=== PATIENT | male | born 1985 | race African-American/Black ===

== ENCOUNTER 2018-02-05 09:15 | Emergency (ER) | payer SELFPAY ==
[~2018-02-05] VITALS: Ht 175.3 cm; Wt 84.0 kg
[2018-02-05] MEDS ORDERED: IBUPROFEN 800MG TABLET PO ONE (11:00)
[2018-02-05 11:09] VITALS: BP 118/67
== END 2018-02-05 11:43 | disposition home or self-care (01) ==
LOC: ER 09:15
DX: K08.89 Other specified disorders of teeth and supporting structures (principal)
CPT/HCPCS: 99283; Z7610

== ENCOUNTER 2018-05-27 13:19 | Emergency (ER) | payer SELFPAY ==
[~2018-05-27] VITALS: Ht 175.3 cm; Wt 84.0 kg
[2018-05-27] MEDS ORDERED: ACETAMINOPHEN 500MG TABLET PO ONE (14:45)
[2018-05-27 15:16] VITALS: BP 110/67
== END 2018-05-27 15:18 | disposition home or self-care (01) ==
LOC: ER 13:19
DX: R68.84 Jaw pain (principal); F12.10 Cannabis abuse, uncomplicated; K08.89 Other specified disorders of teeth and supporting structures
CPT/HCPCS: 99283

== ENCOUNTER 2018-12-22 20:00 | Emergency (ER) | payer OTHER ==
[~2018-12-22] VITALS: Ht 172.7 cm; Wt 88.2 kg
[2018-12-22 20:47] VITALS: BP 114/76
== END 2018-12-22 22:22 | disposition home or self-care (01) ==
LOC: ER 20:00
DX: L02.412 Cutaneous abscess of left axilla (principal); F12.10 Cannabis abuse, uncomplicated
CPT/HCPCS: 99283

== ENCOUNTER 2019-02-22 18:45 | Emergency (ER) | payer OTHER ==
[~2019-02-22] VITALS: Ht 172.7 cm; Wt 84.0 kg
[2019-02-22 23:57] VITALS: BP 111/71
== END 2019-02-22 23:58 | disposition home or self-care (01) ==
LOC: ER 18:45
DX: K02.9 Dental caries, unspecified (principal); H10.9 Unspecified conjunctivitis; L03.112 Cellulitis of left axilla; F12.10 Cannabis abuse, uncomplicated
CPT/HCPCS: 99283

== ENCOUNTER 2020-01-15 14:57 | Emergency (ER) | payer OTHER ==
[~2020-01-15] VITALS: Ht 175.3 cm; Wt 81.0 kg
[2020-01-15 16:40] VITALS: BP 112/68
== END 2020-01-15 16:40 | disposition home or self-care (01) ==
LOC: ER 15:16
DX: L02.01 Cutaneous abscess of face (principal); F12.10 Cannabis abuse, uncomplicated
CPT/HCPCS: 99283

== ENCOUNTER 2021-01-12 17:34 | Emergency (ER) | payer OTHER ==
[~2021-01-12] VITALS: Ht 304.8 cm; Wt 82.9 kg
[2021-01-12 18:58] LABS: CHLORIDE 106 mEq/L (98-107)
[2021-01-12] MEDS ORDERED: DOXY100C2 MT (19:15)
[2021-01-12] MEDS ORDERED: POLY15DR31 EACHEYE (19:15)
[2021-01-12] MEDS ORDERED: TERB250T51 MT (19:15)
[2021-01-12] MEDS ORDERED: TERB30CR8 TP (19:15)
[2021-01-12 20:15] VITALS: BP 117/78
== END 2021-01-12 20:15 | disposition home or self-care (01) ==
LOC: ER 17:34
DX: B35.1 Tinea unguium (principal); L03.031 Cellulitis of right toe; L03.032 Cellulitis of left toe; H10.022 Other mucopurulent conjunctivitis, left eye
CPT/HCPCS: 36415; 80053; 99283

== ENCOUNTER 2021-06-24 13:01 | Emergency (ER) | payer OTHER ==
[~2021-06-24] VITALS: Ht 172.7 cm; Wt 82.0 kg
[~2021-06-24 13:01] MED LIST: DOXY100C5 MT; POLY15DR31 EACHEYE; TERB250T51 MT; TERB30CR8 TP
[2021-06-24] MEDS ORDERED: IBUPROFEN 400MG TABLET PO ONE (14:30)
[2021-06-24] MEDS ORDERED: CEPHALEXIN 250MG CAPSULE PO ONE (14:30)
[2021-06-24 14:41] VITALS: BP 107/63
[2021-06-24] MEDS ORDERED: CLIN-116 MT (15:11)
[2021-06-24] MEDS ORDERED: IBUP-2028 MT (15:11)
== END 2021-06-24 15:30 | disposition home or self-care (01) ==
LOC: ER 13:01
DX: L02.01 Cutaneous abscess of face (principal); K08.89 Other specified disorders of teeth and supporting structures; Z88.1 Allergy status to other antibiotic agents; Z88.2 Allergy status to sulfonamides
CPT/HCPCS: 99283

== ENCOUNTER 2021-09-17 19:21 | Emergency (ER) | payer MEDICAID, OTHER ==
[~2021-09-17] VITALS: Ht 172.7 cm; Wt 84.0 kg
[~2021-09-17 19:21] MED LIST changes: +CLIN-116 MT; +IBUP-2028 MT
[2021-09-17 21:27] VITALS: BP 106/61
[2021-09-17] MEDS ORDERED: CLIN300C12 MT (22:11)
== END 2021-09-17 23:17 | disposition home or self-care (01) ==
LOC: ER 19:21
DX: L73.9 Follicular disorder, unspecified (principal); Z88.2 Allergy status to sulfonamides; Z79.899 Other long term (current) drug therapy
CPT/HCPCS: 99281; 99283

== ENCOUNTER 2021-11-26 18:09 | Emergency (ER) | payer MEDICAID ==
[~2021-11-26] VITALS: Ht 175.3 cm; Wt 84.0 kg
[~2021-11-26 18:09] MED LIST changes: +CLIN-194 MT; -TERB250T51 MT; +TERB250T88 MT
[2021-11-26 18:50] VITALS: BP 108/65
[2021-11-26] MEDS ORDERED: TOPUD PO (19:52)
[2021-11-26] MEDS ORDERED: IBUP-2028 MT (19:52)
[2021-11-26] MEDS ORDERED: AMOX-494 MT (19:52)
[2021-11-26] MEDS ORDERED: IBUPROFEN 400MG TABLET PO ONE (20:00)
[2021-11-26] MEDS ORDERED: AMOXICILLIN 500 MG CAPSULE PO ONE (20:00)
[2021-11-26] MEDS ORDERED: ACETAMINOPHEN 325MG TABLET PO ONE (20:00)
== END 2021-11-26 20:27 | disposition home or self-care (01) ==
LOC: ER 18:09
DX: S02.5XXA Fracture of tooth (traumatic), initial encounter for closed fracture (principal); K02.9 Dental caries, unspecified; X58.XXXA Exposure to other specified factors, initial encounter; Y93.89 Activity, other specified; Y92.89 Other specified places as the place of occurrence of the external cause; Y99.8 Other external cause status; Z79.899 Other long term (current) drug therapy; Z88.2 Allergy status to sulfonamides
CPT/HCPCS: 99284

== ENCOUNTER 2022-06-22 14:39 | Emergency (ER) | payer OTHER, MEDICAID ==
[~2022-06-22] VITALS: Ht 177.8 cm; Wt 78.0 kg
[~2022-06-22 14:39] MED LIST changes: +AMOX-494 MT; +TOPUD PO
[2022-06-22] MEDS ORDERED: PENI500T MT (15:55)
[2022-06-22] MEDS ORDERED: IBUP-2029 MT (15:55)
[2022-06-22 16:17] VITALS: BP 122/73
[2022-06-22] MEDS: IBUPROFEN 600MG TABLET PO ONE (16:17)
[2022-06-22] MEDS: PENICILLIN V POTASSIUM 250MG TABLET PO ONE (16:30)
== END 2022-06-22 16:32 | disposition home or self-care (01) ==
LOC: ER 14:39
DX: K04.7 Periapical abscess without sinus (principal); L73.1 Pseudofolliculitis barbae; Z79.899 Other long term (current) drug therapy; Z88.2 Allergy status to sulfonamides
CPT/HCPCS: 99282; 99283